=== PATIENT | male | born 1960 | race Caucasian/White ===

== ENCOUNTER 2024-04-12 08:11 | Observation (INO) ==
[2024-04-12] MEDS: Iodixanol 320 (CONTRAST) 100 ML SDV IV ONE (08:39)
[2024-04-12 08:45] LABS: INR 0.91 (0.85-1.14)
[2024-04-12 09:08] LABS: ABS Basophils 0.1 10^3/uL (0.0-0.1); ABS Eosinophils 0.1 10^3/uL (0.0-0.5); ABS Lymphocytes 2.3 10^3/uL (1.0-4.8); ABS Monocytes 0.7 10^3/uL (0.0-1.1); ABS Neutrophils 6.3 10^3/uL (1.5-7.6); ABS Nucleated RBC 0.01 10^3/ul; Eosinophil % 0.6 %; Hematocrit 46.9 % (38-53); Hemoglobin 16.7 g/dL (13.2-16.3); Lymphocyte % 24.1 %; Mean Corpuscular Hemoglobin 32.2 pg (27-33); Mean Corpuscular Hgb Conc 35.7 g/dL (31-36); Mean Corpuscular Volume 90.4 fL (80-97); Mean Platelet Volume 7.4 fL (7.5-11.2); Nucleated Red Blood Cells % 0.1 %/100WBC (0.0-0.8); Platelet Count 403 10^3/uL (150-450); Red Blood Count 5.18 10^6/uL (4.06-5.63); Red Cell Distribution Width 12.9 % (12-17); White Blood Count 9.4 10^3/uL (3.6-10.2)
[2024-04-12 09:21] LABS: ALT 36 U/L (7-52); Albumin 4.5 g/dL (3.5-5.7); Albumin/Globulin Ratio 1.5 (1-3); Alkaline Phosphatase 92 U/L (35-149); Anion Gap 10 mmol/L (2-16); Blood Urea Nitrogen 11 mg/dL (6-24); CO2 Carbon Dioxide 25 mmol/L (22-32); Calcium 9.9 mg/dL (8.6-10.3); Chloride 100 mmol/L (101-111); Cholesterol 303 mg/dL; Creatinine, Serum 0.82 mg/dL (0.67-1.17); Globulin 3.1 g/dL (2-4); Glucose 227 mg/dL (70-100); Sodium 135 mmol/L (135-145); Total Bilirubin 0.5 mg/dL (0.2-1.0); Total Protein 7.6 g/dL (6.4-8.9); Triglycerides 981 mg/dL; eGFR CKD-EPI 97.5 (>60)
[2024-04-12 09:36] LABS: LDL Cholesterol Direct 111 mg/dL
[2024-04-12] MEDS: Aspirin EC 325 mg TAB.EC PO ONE (09:37)
[2024-04-12 09:46] LABS: Urine Appearance Clear; Urine Bilirubin Negative (Negative); Urine Blood Negative (Negative); Urine Color Colorless; Urine Glucose 2+ (>=150 mg/dL) (Negative); Urine Ketones Negative (Negative); Urine Nitrite Negative (Negative); Urine Protein Trace (Negative); Urine Specific Gravity 1.022 (1.002-1.030); Urine Urobilinogen Negative (Negative)
[2024-04-12 09:47] LABS: Urine Bacteria Absent /HPF (Absent); Urine Red Blood Cell Trace(0-2/hpf) /HPF (0-Trace); Urine White Blood Cell Absent /HPF (0-Trace)
[2024-04-12 10:28] LABS: Direct Bilirubin 0.1 mg/dL (0.03-0.18); Potassium Redraw 4.7 mmol/L (3.5-5.0)
[2024-04-12] MEDS ORDERED: Sulfur Hexaflouride MICROSPHR 25 MG VIAL IV PRN (13:24)
[2024-04-12] MEDS: Nicotine PATCH 21 MG/24 HR PATCH TRANSDERM ONE (14:03)
[2024-04-12] MEDS: Nicotine GUM 4MG FRUIT FLAVOR PO PRN (14:03)
[2024-04-12] MEDS: Enoxaparin 40 MG/0.4 ML SYR SUBCUT SCH (18:01)
[2024-04-13 05:32] VITALS: BP 166/81
== END 2024-04-13 08:00 | disposition left against medical advice (07) ==
LOC: ED 08:11 → EDHOLD 08:11 → SUATTDRO 13:24 → MEDTELE 16:17
PROVIDERS: ADMIT Internal Medicine; ATTEND Internal Medicine